=== PATIENT | male | born 1990 | race Caucasian/White ===

== ENCOUNTER 2020-07-14 02:32 | Outpatient (CLI) | payer BC, SELFPAY ==
--- NOTE | 2020-07-14 | DI.US_ITS ---
EXAM: US BREAST RT COMPLETE CLINICAL HISTORY: rt br pain/ fam hx br hx. TECHNIQUE: Complete ultrasound of the right breast was performed incluing all 4 quadrants, the retro areolar region, and the ipsilateral axilla. COMPARISON: Today's diagnostic mammogram was reviewed. FINDINGS: There is no evidence of solid or significant cystic lesion in all 4 quadrants of the right breast. M ild retroareolar region gynecomastia is noted. There are no focal ultrasound findings to correspond to the small 2-3 millimeter nodule see seen at a pproximately 12 o'clock position on the mammogram. IMPRESSION: Mild gynecomastia. See separate mammogram dictation Appropriate follow-up is repeat right breast imaging in 3 months, this to include repeat right breast mammogram and ultrasound.. BI-RADS Category 3 - 3 month - Probably Benign Finding: Recommend follow-up mammography in 3 months Breast Density - Category B - Scattered areas of fibroglandular density The Breast density Category C or D implies that the patient has dense breast tissue. Dense breast tissue can make it harder to find cancer on a mammogram. Dense breast tissue is also associated with an incr eased risk of breast cancer. This information about the result of the mammogram report was provided to the patient to raise their awareness. Use this report when you speak with the patient about their risks for breast cancer, which includes their family history. At that time, you may recommend additional screening tests (Ultrasoun d or MRI) as these tests may add significant information. A negative radiographic report should not delay biopsy if a dominant or clinically suspicious mass is present. Up to ten percent of cancers are not identified on mammography. A negative report may reinforce clinical impression. Adenosis and dense breasts may obscure an underlying neoplasm. False positive reports average 6 to 10%. Patient will receive a letter notifying them of these results.
--- NOTE | 2020-07-14 10:20 | DI.MAMMO_ITS ---
EXAM: MG MAMMO DIAGNOSTIC BI CLINICAL HISTORY: R breast tenderness x1 month, strong family h/O BREAST CA, N64.4,RT BREAST. TECHNIQUE: Both CC MLO views of both breasts were performed. Also performed digital spot compressio n view of right breast. Right breast ultrasound was also performed today. COMPARISON: No previous FINDINGS: There are no CAD designations. There is mild bilateral gynecomastia, slightly more prominent on the right side which is side of his symptoms. In addition, there is a small 2 millimeter asymmetric density in the right breast located 1.8 centime ida in from the nipple. This is equivocal on additional spot compression view performed today. We therefore proceeded with right breast ultrasound. This revealed mild gynecomastia but no discerni ble separate nodule nor cyst. IMPRESSION: Bilateral mild gynecomastia, right slightly more so than left. Also small 2 millimeter asymmetric density right breast without corresponding ultrasound finding. Appropriate follow-up is repeat right breast imaging in 3 months, this to include repeat ultrasound a nd mammogram. This is mostly to ensure stability of the 2 millimeter asymmetric density. Findings recommendations were discussed by myself with the patient today BI-RADS Category 3 - 3 month - Probably Benign Finding: Recommend follow-up mammography in 3 months Breast Density - Category B - Scattered areas of fibroglandular density Breast density Category C or D implies that the patient has dense breast tissue. Dense breast tissue can make it harder to find cancer on a mammogram. Dense breast tissue is also associated with an incr eased risk of breast cancer. This information about the result of the mammogram report was provided to the patient to raise their awareness. Use this report when you speak with the patient about their risks for breast cancer, which includes their family history. At that time, you may recommend additional screening tests (Ultrasoun d or MRI) as these tests may add significant information. A negative radiographic report should not delay biopsy if a dominant or clinically suspicious mass is present. Up to ten percent of cancers are not identified on mammography. A negative report may reinforce clinical impression. Adenosis and dense breasts may obscure an underlying neoplasm. False positive reports average 6 to 10%. Patient will receive a letter notifying them of these results.
== END 2020-07-14 02:52 ==
PROVIDERS: PCP Family Medicine; Visit Provider Family Medicine
DX: N64.4 Mastodynia (principal); Z80.3 Family history of malignant neoplasm of breast; N62 Hypertrophy of breast; N64.89 Other specified disorders of breast
CPT/HCPCS: 76642; 77062; 77066; G0279

== ENCOUNTER 2020-10-19 01:45 | Outpatient (CLI) | payer BC, SELFPAY ==
--- NOTE | 2020-10-19 07:30 | DI.US_ITS ---
Exam(s) MG MAMMO DIAGNOSTIC UNI US BREAST RT LIMITED EXAM: US BREAST RT LIMITED CLINICAL HISTORY: Small R breast nodule, needs 3 month follow up, f/u mammo, R92.8 TECHNIQUE: Ultrasound performed using standard protocol. COMPARISON: US US BREAST RT COMPLETE from 07/14/2020 FINDINGS: Right breast mammogram and right breast ultrasound are interpreted in conjunction. No mass or clumpe d microcalcification seen. No significant change in mammographic appearance comparison with prior July 14. Presumed gynecomastia again noted. On ultrasound, no solid mass or cyst is identified. There is mild prominence of retroareolar tissue on ultrasound examination. This is consistent with gynecomastia. IMPRESSION: No specific evidence of malignancy at this time. No additional imaging follow-up recommended. Clini valentin follow-up is suggested. BI-RADS Cat 1 - Negative Breast Density - Category B - Scattered areas of fibroglandular density DATA REPOSITORY:
== END 2020-10-19 02:05 ==
PROVIDERS: PCP Family Medicine; Visit Provider Family Medicine
DX: R92.8 Other abnormal and inconclusive findings on diagnostic imaging of breast (principal); N63.10 Unspecified lump in the right breast, unspecified quadrant
CPT/HCPCS: 76642; 77061; 77065; G0279

== ENCOUNTER 2023-10-14 09:09 | Emergency (ER) | payer BC, SELFPAY ==
[2023-10-14 09:13] VITALS: BP 125/65; PULSE 58; RESP 16; TEMP 36.6; O2SAT 100
--- NOTE | 2023-10-14 09:44 | W.ED.GENAD ---
Discharge Plan Disposition Patient Disposition: Home Condition: Stable Discharge Details Clinical Impression: Neck pain on right side Primary Care Provider: Jose Baird ED Provider: Dougie Blanco Home Meds and New Rx's Prescriptions: No Action No Known Home Meds Discharge Instructions Instructions: Neck Pain ED Additional Instructions: As we discussed together at this time I am concerned about the pain in your right neck. I feel the next appropriate step is imaging of your neck and your neck vasculature to evaluate for concerning etiologies. This imaging is performed by a CAT scan called a CT of the head and neck as well as a CTA of the head and neck. As we do not have current CAT scan abilities secondary to a mechanical issue it is our recommendation that you go to a nearby hospital for this imaging. As we discussed together I will be contacting [facility] and informing them of your symptoms my recommendations and recommended next steps. Please drive there to have the imaging done and performed If you notice any worsening of your symptoms, or any new symptoms such as vomiting, diarrhea, fever, chills, shortness of breath, chest pain, numbness, weakness, or fainting , please return immediately to the emergency department for reevaluation. Please follow up with your primary care provider as soon as possible for reassessment and reevaluation. As always, it was a pleasure participating in your medical care today. Referrals: Jose Baird DO [Primary Care Provider] - [facility] General Date/Time Provider Initiated Documentation: 10/14/23 09:11. [facility] Narrative: 32-year-old male with no significant past medical history presents today for evaluation of syncope and neck pain. Patient states that 5 days ago on Sunday he was wrestling with his young son. He states that they were quite aggressive and his son is large for his age. He states that his son was hanging around and torquing on his neck fairly aggressively. During this episode while the son was applying particular strain to the right side of the neck the patient suddenly felt lightheaded and passed out fell forward. He thinks he may have hit his head on a table. When he woke up he had notable pain in his right neck, numbness and tingling in his right arm, and felt quite dizzy. Symptoms gradually improved over the next 2 to 3 days, the tingling however remained persistent over the shoulder and right neck. As well as the notable pain in the right side of his neck. He continues to feel lightheaded and uneasy. However he has not had any additional syncopal episodes. He denies any blurry vision, or is in his vision, change in hearing, or other complaints. His neck pain is worsened whenever he moves his neck in any direction. His shoulder he admits is also mildly sore with movement. No aggravating or relieving factors for the numbness/tingling in his right shoulder. He denies any previous history of strokes or other vascular problems. He denies a personal or family history of Howard-Danlos syndrome, Marfan syndrome, aneurysms or dissections. He has not seen a chiropractor since this initial episode. He has taken occasional Tylenol and Motrin with only mild improvement. He has not had any symptoms like this before. No other complaints at this time. Related Data Home Medications Medication Instructions Recorded Confirmed Unknown [No Known Home Meds] 06/25/20 10/14/23 Allergies Allergy/AdvReac Type Severity Reaction Status Date / Time No Known Allergies Allergy Verified 10/14/23 09:16 General Stated Complaint: Dizzy/Sync ARELIS: 3 Review of Systems All systems reviewed & are unremarkable except as noted in HPI and below Exam Narrative Exam Narrative: 1.Const: Well-nourished, Well-developed, appearing stated age 2.Eyes: PERRL, no conjunctival injection, and symmetrical lids. 3.ENT: Atraumatic external nose and ears. Moist MM. Neck: Symmetric, trachea midline, No thyromegaly. 4.CVS: +S1/S2, No murmurs or gallops. Peripheral pulses 2+ and equal in all extremities. Brisk capillary refill in all extremities. Radial pulses +2 bilaterally. No carotid or vertebral artery bruits are auscultated. 5.RESP: Unlabored respiratory effort. Clear to auscultation bilaterally. No wheezes rales or rhonchi 6.GI: Soft, Nontender/Nondistended, No hepatosplenomegaly. No guarding or rebound. 7.MSK: Normocephalic/Atraumatic, Extremities w/o deformity or ttp No cyanosis or clubbing, Normal movement of all extremities. Patient demonstrates pain in the right shoulder with internal and external rotation as well as abduction. No significant pain with anterior posterior movement or adduction. No significant midline cervical spine tenderness, however mild to moderate right sided paraspinal tenderness. Axial load pressure on the head and C-spine does not elicit worsening of the tingling in the right shoulder. Patient has restricted range of motion for sidebending rotation and flexion and extension for the neck, likely worsened by muscle spasm. Cutaneous evaluation of the right upper extremity demonstrates intact sensation over all aspects including over the deltoid axillary region bicep and forearm and hand. Normal drivers' cash clerk strength bilaterally. Subjective atypical/numb sensation and tingling sensation is present over the area of the deltoid muscle. This extends towards the neck. 8.Skin: Warm, Dry. No rashes or lesions. 9.Neuro: radiological technologist II-XII grossly intact. Sensation grossly intact (please see musculoskeletal for specifics), no focal neurologic deficits. All 6 cardinal planes of vision are fully intact. No evidence of rotatory or vertical nystagmus. The patient demonstrated a normal lgpbvx-zkjq-gwoeet, good dexterity. There was no evidence of dysdiadochokinesia. Patient was able to ambulate without difficulty. There was no wide-based gait. Romberg testing was normal. Lvum-fm-rndr testing was normal. Sensation was intact bilaterally as well as muscle strength bilaterally for all extremities. Patient was able to verbalize butter cup with no slurring, or miss pronunciation. 10.Psych: (AAO) x3. Appropriate mood and affect Course Vital Signs Vital signs: Vital Signs Temperature 36.6 C 10/14/23 09:13 Pulse 58 L 10/14/23 09:13 Respiratory Rate 16 10/14/23 09:13 Blood Pressure 125/65 10/14/23 09:13 Pulse Oximetry 100 10/14/23 09:13 Temperature 36.6 C 10/14/23 09:13 Temperature Source Temporal Artery Scan 10/14/23 09:13 Pulse 58 L 10/14/23 09:13 Respiratory Rate 16 10/14/23 09:13 Respiratory Effort Normal 10/14/23 09:33 Respiratory Depth Normal 10/14/23 09:33 Respiratory Pattern Normal 10/14/23 09:33 Blood Pressure 125/65 10/14/23 09:13 Blood Pressure Position Sitting 10/14/23 09:13 Pulse Oximetry 100 10/14/23 09:13 Oxygen Delivery Method Room Air 10/14/23 09:13 Oxygen Flow Rate 0 10/14/23 09:13 Medical Decision Making 32-year-old male with no significant past medical history presents today for evaluation of syncope and neck pain. Patient states that 5 days ago on Sunday he was wrestling with his young son. He states that they were quite aggressive and his son is large for his age. He states that his son was hanging around and torquing on his neck fairly aggressively. During this episode while the son was applying particular strain to the right side of the neck the patient suddenly felt lightheaded and passed out fell forward. He thinks he may have hit his head on a table. When he woke up he had notable pain in his right neck, numbness and tingling in his right arm, and felt quite dizzy. Symptoms gradually improved over the next 2 to 3 days, the tingling however remained persistent over the shoulder and right neck. As well as the notable pain in the right side of his neck. He continues to feel lightheaded and uneasy. However he has not had any additional syncopal episodes. He denies any blurry vision, or is in his vision, change in hearing, or other complaints. His neck pain is worsened whenever he moves his neck in any direction. His shoulder he admits is also mildly sore with movement. No aggravating or relieving factors for the numbness/tingling in his right shoulder. He denies any previous history of strokes or other vascular problems. He denies a personal or family history of Howard-Danlos syndrome, Marfan syndrome, aneurysms or dissections. He has not seen a chiropractor since this initial episode. He has taken occasional Tylenol and Motrin with only mild improvement. He has not had any symptoms like this before. No other complaints at this time. Patient demonstrates pain in the right shoulder with internal and external rotation as well as abduction. No significant pain with anterior posterior movement or adduction. No significant midline cervical spine tenderness, however mild to moderate right sided paraspinal tenderness. Axial load pressure on the head and C-spine does not elicit worsening of the tingling in the right shoulder. Patient has restricted range of motion for sidebending rotation and flexion and extension for the neck, likely worsened by muscle spasm. Cutaneous evaluation of the right upper extremity demonstrates intact sensation over all aspects including over the deltoid axillary region bicep and forearm and hand. Normal drivers' cash clerk strength bilaterally. Subjective atypical/numb sensation and tingling sensation is present over the area of the deltoid muscle. This extends towards the neck. No carotid or vertebral artery bruits are auscultated. Radial pulses are +2 bilaterally. Symptoms and exam are concerning for potential vascular or cervical spine pathology. Differential does include vertebral artery dissection, however there is no evidence of stroke at this time. Carotid artery dissection notably less likely. He shows no focal neurologic deficits to suggest a central etiology. I am also concerned of disc pathology causing peripheral nerve compression. In addition to this I do suspect that the patient has mild rotator cuff irritation or injury. No evidence of significant muscular pathology though on exam his strength is notably intact, but I do suspect there is mild irritation or potential bursal irritation in the right shoulder causing his mild persistent achiness. With the differentials that are noted, I do feel that there is a appropriate indication for workup and CT imaging of the head and neck and potential cardiac assessment. I discussed all of this with the patient. Unfortunately our CAT scanner had a catastrophic mechanical issue last night and is currently down. We did call for MRI availability and it is the weekend and no one can come for MRI. I discussed this with the patient and discussed with him my recommendations for these imaging studies and this workup. He understands and agrees. Because we do not have the imaging availability patient will go to another facility for this. I did offer to have him directly transferred now, but he states that he would like to go home for a quick scheduled birthday republican with his son after which point he will then an additional hospital for evaluation. I gave him the option of all the surrounding hospitals and discuss them with him, he states that he would prefer to go to [facility] and so we will send my note to them. Additionally I will contact their provider and make them aware of the patient's scenario. At this time patient is hemodynamically stable. He shows no evidence of stroke. He has good peripheral pulses suggesting no evidence of thoracic aortic dissection. Patient will be discharged with expectation for transfer to [facility] for definitive imaging and evaluation which unfortunately cannot be provided here at this time. I have extensively reviewed the treatment plan and discharge instructions with the patient. I have addressed all patient concerns at this time. The patient was made aware of what symptoms to monitor for that would warrant a return to the emergency department. Discussed the plan with the patient, they demonstrate verbal understanding and agreement with our assessment and plan at this time. The documentation in this chart was dictated using [employer] dictation software. Please excuse any dictation errors. Quality:SDOH Health Related Social Needs: No Data to Display PFSH All Active Problems Neck pain on right side (Acute) Breast mass, right (Acute) Family History Mother Breast cancer Father No problems noted. Brother No problems noted. Brother No problems noted. Brother No problems noted. Social History Smoking/Tobacco Use Status: Current-Occasional Smoking risk assessment performed?: Yes Alcohol Intake: current Alcohol Intake frequency: a few times a month Alcohol type: beer and wine Drug use: Rarely Substance use type: marijuana Details: no IV drug use Adopted: No Caregiver/Support person: No Foster care: No Household members: spouse Number of Children: 1 current occupation: counselor at [employer] Sexually active: Yes Do you think of yourself as: straight/heterosexual Current gender identity: male What is your relationship status?: Panel score (0-1 are the most socially isolated patients): 1
[2023-10-14 09:50] VITALS: BP 124/64; PULSE 57; RESP 18; O2SAT 99
--- NOTE | 2023-10-14 11:48 | NUR.NOTE ---
Nursing Note: ED Visit Provider Note faxed to [facility] ED.
== END 2023-10-14 09:50 | disposition home or self-care (01) ==
LOC: ER 10:09
PROVIDERS: Emergency Provider Student in an Organized Health Care Education/Training Program; PCP Family Medicine
DX: M54.2 Cervicalgia (principal); R55 Syncope and collapse; F17.200 Nicotine dependence, unspecified, uncomplicated
CPT/HCPCS: 99283